=== PATIENT | female | born 1955 | race Caucasian/White ===

== ENCOUNTER 2022-02-11 14:17 | Outpatient (RCR) | payer BC, SELFPAY | END 2023-02-05 23:59 | disposition home or self-care (01) | PROVIDERS: Visit Provider Family Medicine | DX: M54.50 Low back pain, unspecified (principal); M70.72 Other bursitis of hip, left hip; M70.71 Other bursitis of hip, right hip; R26.9 Unspecified abnormalities of gait and mobility; Z51.89 Encounter for other specified aftercare | CPT/HCPCS: 97110; 97161 ==